=== PATIENT | female | born 1980 | race Caucasian/White ===

== ENCOUNTER 2017-03-22 03:45 | Inpatient (IN) | payer OTHER ==
[~2017-03-22] VITALS: Ht 170.2 cm; Wt 102.5 kg
[2017-03-22] MEDS ORDERED: LR 1,000 ML IV ONE (03:56)
[2017-03-22] MEDS ORDERED: LR 1,000 ML IV SCH (03:56)
[2017-03-22] MEDS ORDERED: OXYTOCIN/NORMAL SALINE 1,000 ML IV ONE ×2 (04:57→06:44)
[2017-03-22 05:01] LABS: BASOPHILS % (AUTO) 0.4 % (0.0-2.0); EOSINOPHILS # (AUTO) 0.2 K/uL (0.0-0.4); EOSINOPHILS % (AUTO) 1.4 % (0.0-4.0); HEMATOCRIT 33.6 % (36-48); HEMOGLOBIN 10.9 g/dL (12.0-16.0); LYMPHOCYTES # (AUTO) 2.1 K/uL (1.0-5.5); MEAN CORPUSCULAR HEMOGLOBIN 28 pg (27-31); MEAN CORPUSCULAR HGB CONC 33 % (32-36); MEAN CORPUSCULAR VOLUME 87 fL (79.0-98.0); MONOCYTES # (AUTO) 0.7 K/uL (0.0-1.0); MONOCYTES % (AUTO) 5.5 % (1.7-9.3); NEUTROPHILS # (AUTO) 8.9 K/uL (1.8-7.7); NEUTROPHILS % (AUTO) 74.7 % (40.0-70.0); PLATELET COUNT (AUTO) 161 K/uL (130-430); RED BLOOD CELL COUNT(AUTO) 3.88 MIL/uL (4.2-6.2); RED CELL DISTRIBUTION WIDTH 14.1 % (9.0-15.0); WHITE BLOOD COUNT (AUTO) 11.9 K/uL (4.8-10.8)
[2017-03-22 05:19] VITALS: BP 122/67; PULSE 60; RESP 18; TEMP 98.1
[2017-03-22] MEDS ORDERED: OXYTOCIN/NORMAL SALINE 1,000 ML IV SCH (06:44)
[2017-03-22] MEDS ORDERED: GLYCERIN/WITCH HAZEL (TUCKS PADS) TP PRN (06:45)
[2017-03-22] MEDS ORDERED: DOCUSATE SODIUM 100 MG CAPSULE PO PRN (06:45)
[2017-03-22] MEDS ORDERED: SENNOSIDES/DOCUSATE SODIUM 1 TAB TABLET(SENOKOT-S) PO PRN (06:45)
[2017-03-22] MEDS ORDERED: DERMOPLAST SPRAY TP PRN (06:45)
[2017-03-22] MEDS ORDERED: METHYLERGONOVINE MALEATE 0.2 MG TABLET PO PRN (06:45)
[2017-03-22] MEDS ORDERED: MEASLES,MUMPS&RUBELLA VACC/PF 12500 UNIT/0.5 ML VIAL SUBQ PRN (06:45)
[2017-03-22] MEDS ORDERED: OXYCODONE/ACETAMINOPHEN 5-325 TABLET PO PRN ×2 (06:45)
[2017-03-22] MEDS ORDERED: ANUSOL 1 EA SUPP.RECT (PREPARATION H) RC PRN (06:45)
[2017-03-22] MEDS ORDERED: LANOLIN 7 GM OINT. TP PRN (06:45)
[2017-03-22] MEDS ORDERED: ACETAMINOPHEN 325 MG TABLET PO PRN (06:45)
[2017-03-22] MEDS ORDERED: HYDROCORTISONE 0.5%, 28.35 GM TOPICAL CREAM TP PRN (06:45)
[2017-03-22] MEDS ORDERED: RHO(D) IMMUNE GLOBULIN/MALTOSE 1500 UNITS/1.3 ML (WINHRO) IM PRN (06:45)
[2017-03-22] MEDS: IBUPROFEN 600 MG TABLET PO SCH ×2 (12:04→17:49)
[2017-03-22] MEDS ORDERED: TEMAZEPAM 15 MG CAPSULE PO PRN (21:00)
[2017-03-23] MEDS: IBUPROFEN 600 MG TABLET PO SCH ×5 (00:11→23:40)
[2017-03-23 07:04] LABS: HEMATOCRIT 32.9 % (36-48); HEMOGLOBIN 11.1 g/dL (12.0-16.0)
[2017-03-24] MEDS: IBUPROFEN 600 MG TABLET PO SCH (06:09)
[2017-03-24] MEDS ORDERED: LIDOCAINE PF 1% 30ML(POUR BTL) INJ ONE (11:09)
== END 2017-03-24 11:10 | disposition home or self-care (01) | DRG 775 ==
LOC: SPU 03:45
PROVIDERS: ADMIT Obstetrics & Gynecology; ATTEND Obstetrics & Gynecology
PROC: 10E0XZZ Delivery of Products of Conception, External Approach (ICD-10-PCS; principal; 2017-03-22)
PROC: 0HQ9XZZ Repair Perineum Skin, External Approach (ICD-10-PCS; 2017-03-22)
PROC: 3E0134Z Introduction of Serum, Toxoid and Vaccine into Subcutaneous Tissue, Percutaneous Approach (ICD-10-PCS; 2017-03-22)
DX: O70.0 First degree perineal laceration during delivery (principal); O09.523 Supervision of elderly multigravida, third trimester; Z37.0 Single live birth; Z3A.39 39 weeks gestation of pregnancy; Z23 Encounter for immunization
CPT/HCPCS: 36415; 85018-TC; 85025; 86592; 86886; 86900; 86901; J2001; J2590